=== PATIENT | male | born 1965 | race Caucasian/White ===

== ENCOUNTER 2020-01-06 08:59 | Day surgery (SDC) | payer OTHER, SELFPAY ==
[2020-01-01 11:06] VITALS: BMI 29.5
--- NOTE | 2020-01-03 14:30 | MHC.SHP ---
Pre-Procedural Eval Section A The patient is an INPATIENT: No The History & Physical has been completed within 30 days and I have reviewed it.: Yes Section B Chief Complaint: Right Eye Cataract Allergies: Allergies Allergy/AdvReac Type Severity Reaction Status Date / Time No Known Allergies Allergy Unverified 11/21/19 15:39 Plan Diagnosis/Plan: Unchanged Patient has been examined and remains a candidate for the planned procedure
--- NOTE | 2020-01-03 14:44 | P.CONAN_ITS ---
Documented by User: Genesis Moss 01/03/20 14:46 HPI - Anesthesia Eval Consult details Narrative: 54yo M for cataract Congenital deafness requiring field clerk PCP cleared [facility] Past Medical History Medical History Anxiety Asthma Deafness congenital Elevated cholesterol History of postoperative nausea and vomiting HTN (hypertension) Hypothyroidism Learning disability OCD (obsessive compulsive disorder) Seasonal allergies Surgical History Surgical History Hx of cataract extraction Hx of detached retina repair Social History Social History Household Members Other:: sister Terra Smoking Status: Never smoker Use of substances other than those prescribed or required for medical reasons: No Advance Directives: No Advance Directives Information Provided: No Advance Directives on File: No Meds Allergies Allergy/AdvReac Type Severity Reaction Status Date / Time No Known Allergies Allergy Unverified 11/21/19 15:39 Home Medications Medication Instructions Recorded Confirmed Type albuterol sulfate 90 mcg INHALATION Q4H PRN 01/01/20 01/01/20 History atorvastatin 20 mg PO BEDTIME 01/01/20 01/01/20 History levothyroxine 88 mcg PO DAILY 01/01/20 01/01/20 History valsartan 80 mg PO DAILY 01/01/20 01/01/20 History venlafaxine 150 mg PO DAILY 01/01/20 01/01/20 History Exam Exam Date and Time: January 03, 2020 1444 Height,Weight and Vital Signs: Height 6 ft Weight 98.883 kg Assessment and Plan Assessment Anesthesia Assessment: Chart Reviewed Documented by User: Sabine Wilson 01/06/20 11:26 [facility] Past Medical History Medical History Anxiety Asthma Deafness congenital Elevated cholesterol History of postoperative nausea and vomiting HTN (hypertension) Hypothyroidism Learning disability OCD (obsessive compulsive disorder) Seasonal allergies Surgical History Surgical History Hx of cataract extraction Hx of detached retina repair Social History Social History Household Members Other:: sister Terra Smoking Status: Never smoker Use of substances other than those prescribed or required for medical reasons: No Advance Directives: No Advance Directives Information Provided: No Advance Directives on File: No Meds Allergies Allergy/AdvReac Type Severity Reaction Status Date / Time No Known Allergies Allergy Unverified 11/21/19 15:39 Home Medications Medication Instructions Recorded Confirmed Type albuterol sulfate 90 mcg INHALATION Q4H PRN 01/01/20 01/01/20 History atorvastatin 20 mg PO BEDTIME 01/01/20 01/01/20 History levothyroxine 88 mcg PO DAILY 01/01/20 01/01/20 History valsartan 80 mg PO DAILY 01/01/20 01/01/20 History venlafaxine 150 mg PO DAILY 01/01/20 01/01/20 History Exam Airway Mallampati Class: III TM Dist: >3cm Neck ROM: Full Heart: RRR Lungs: CTA Assessment and Plan Assessment Anesthesia Assessment: Anesthesia Plan Discussed and Chart Reviewed Final Anesthetic Review NPO: Yes ASA Class: II Final Preanesthetic Review: Consent Obtained/Reviewed and Anes Risks/Benef Reviewed Patient Risk: Low Anesthetic Plan Anesthetic Plan: MAC: Disposition: Standard PACU
[2020-01-06 11:28] VITALS: BP 122/77; PULSE 61; RESP 18; TEMP 36.4; O2SAT 96
[2020-01-06] MEDS: Tetracaine HCl/PF 0.5% Oph Sol 4 ML DROPS 1 DROP EYE-RIGHT (11:36)
[2020-01-06] MEDS: Tropicamide 1 % Ophth Sol 3 ML BTL 1 DROP EYE-RIGHT ×3 (11:38→11:45)
--- NOTE | 2020-01-06 12:17 | HO.PNOPHT ---
Ophthalmology Procedure Procedure Ophthalmology Viscoelastic: Sabiha Eid Dual Pack Pro Ophthalmology Lenses: TECNIS [id number] (13.5) Procedure Notes: PREOPERATIVE DIAGNOSIS: Decreased visual acuity right eye secondary to cataract POSTOPERATIVE DIAGNOSIS: Same PROCEDURE: Right cataract extraction with intraocular lens insertion SURGEON: Eder Brock M.D. ANESTHESIA: Topical/MAC ESTIMATED BLOOD LOSS: None COMPLICATIONS: None After obtaining informed consent, the patient was brought to the operating room suite and placed in the supine position. After adequate sedation per anesthesia, topical drops of Tetracaine were given to the right eye. The eye was then prepped and draped in the usual sterile fashion. The operating room microscope was then positioned over the operative eye and a lid speculum placed. A paracentesis was created. Viscoelastic was then instilled into the anterior chamber. A three plane incision was then created temporally, utilizing a 2.85 mm keratome. Capsulotomy forceps were then utilized to create a circular tear capsulotomy. Hydrodissection and hydrodelineation were carried out until adequate mobilization of the nucleus occurred. Phacoemulsification was then utilized to remove the dense central nucleus followed by removal of the cortical material utilizing the automated aspiration irrigation unit. Viscoelastic was instilled into the posterior capsular bag followed by placement of a posterior chamber intraocular lens without difficulty. The residual Viscoelastic was then removed utilizing the automated IA machine. The wound was checked and found to be watertight. The patient tolerated the procedure well and the lid speculum was removed. Intracameral injection of Vigamox 0.1 mL followed by a subtenon injection of Kenalog-40 0.2 mL were administered. The patient will be seen in the a.m.
[2020-01-06 12:19] VITALS: BP 128/83; PULSE 66; RESP 17; TEMP 36.6; O2SAT 96
== END 2020-01-06 23:59 | disposition home or self-care (01) ==
PROVIDERS: PCP Internal Medicine; Visit Provider Ophthalmology
PROC: (CPT 66985; principal; 2020-01-06 11:40)
DX: H25.11 Age-related nuclear cataract, right eye (principal); H54.7 Unspecified visual loss; I10 Essential (primary) hypertension; J45.20 Mild intermittent asthma, uncomplicated; E03.9 Hypothyroidism, unspecified; F41.9 Anxiety disorder, unspecified; F42.9 Obsessive-compulsive disorder, unspecified; H90.5 Unspecified sensorineural hearing loss; Z79.899 Other long term (current) drug therapy
CPT/HCPCS: 66984; J2250; J3010; J3300; V2632

== ENCOUNTER 2021-05-17 13:58 | Outpatient (REF) | payer OTHER, SELFPAY ==
[2021-05-17 14:05] VITALS: BP 133/71; PULSE 64; RESP 16; TEMP 36.3; O2SAT 98; BMI 27.1
== END 2021-05-17 13:59 | disposition home or self-care (01) ==
LOC: HO.MS 13:58
PROVIDERS: PCP Internal Medicine; Visit Provider Ophthalmology
PROC: (CPT 66821; principal; 2021-05-17 15:10)
DX: H26.491 Other secondary cataract, right eye (principal); Z96.1 Presence of intraocular lens; I10 Essential (primary) hypertension; E03.9 Hypothyroidism, unspecified; J45.20 Mild intermittent asthma, uncomplicated; H90.5 Unspecified sensorineural hearing loss; Z79.899 Other long term (current) drug therapy
CPT/HCPCS: 66821